=== PATIENT | female | born 1950 | race Caucasian/White ===

== ENCOUNTER 2016-04-14 09:16 | Outpatient (CLI) | payer MEDICARE, OTHER ==
[2016-04-14 12:23] LABS: #Eosinphils 0.1 thou/uL (0.0-0.7); #Lymphocytes 3.1 thou/uL (1.20-3.40); #Monocytes 0.6 thou/uL (0.11-0.59); #Neutrophils 6.2 thou/uL (1.40-6.50); %Basophils 0.5 % (0.0-1.0); %Eosinophils 0.8 % (0.0-10.0); %Lymphocytes 30.9 % (21.0-51.0); %Monocytes 6.3 % (0.0-10.0); Hematocrit 41.7 % (36.0-47.0); Mean Platelet Volume 8.1 fL (7.4-10.4); Red Blood Cell (RBC) Count 4.78 mill/uL (4.20-5.40)
[2016-04-14 12:57] LABS: ALT (SGPT) 22 U/L (0-55); AST (SGOT) 21 U/L (5-34); Alkaline Phosphatase 91 U/L (40-150); Anion Gap 17 mmol/L (10-20); BUN (Urea Nitrogen) 17 mg/dL (9.8-20.1); Bilirubin, Direct 0.2 mg/dL (0.1-0.3); Bilirubin, Total 0.6 mg/dL (0.2-1.2); Calc. Creatinine Clearance 0 mL/min (70-130); Calcium 9.2 mg/dL (7.8-10.44); Carbon Dioxide 21 mmol/L (23-31); Chloride 107 mmol/L (98-107); Estimated GFR-MDRD 75; LDL Cholesterol, Calculated 135 mg/dL; Protein, Total 6.6 g/dL (5.8-8.1)
== END 2016-04-14 09:17 | disposition home or self-care (01) ==
LOC: NAVSJIPCSP 09:16
PROVIDERS: ATTEND Nurse Practitioner Family
DX: E03.9 Hypothyroidism, unspecified (principal); I10 Essential (primary) hypertension; I49.9 Cardiac arrhythmia, unspecified; M19.90 Unspecified osteoarthritis, unspecified site; Z79.899 Other long term (current) drug therapy
CPT/HCPCS: 36415; 80048; 80061; 80076; 83036; 84443; 85025

== ENCOUNTER 2018-07-06 10:23 | Outpatient (CLI) | payer MEDICARE ==
--- NOTE | 2018-07-06 10:42 | RAD ---
PA AND LATERAL VIEWS CHEST: Date: 07/06/18 HISTORY: Cough and fever. FINDINGS: The heart size is normal. The aorta is tortuous. The lungs are expanded without focal areas of consol idation, pneumothoraces, or pleural effusions. No acute osseous abnormalities are seen. IMPRESSION: No radiographic evidence of acute cardiopulmonary process. POS: C
== END 2018-07-06 10:24 | disposition home or self-care (01) ==
LOC: NAV RAD 10:23
PROVIDERS: ATTEND Nurse Practitioner Adult Health
DX: R05 Cough (principal)
CPT/HCPCS: 71046

== ENCOUNTER 2021-07-29 09:54 | Outpatient (CLI) | payer MEDICARE | END 2021-07-29 09:55 | disposition home or self-care (01) | LOC: NAV RAD 09:54 | PROVIDERS: ATTEND Nurse Practitioner Family | DX: M54.2 Cervicalgia (principal); M47.812 Spondylosis without myelopathy or radiculopathy, cervical region | CPT/HCPCS: 72040 ==